=== PATIENT | male | born 2000 | race Caucasian/White ===

== ENCOUNTER 2018-03-30 12:09 | Emergency (ER) | payer OTHER ==
[2018-03-30] MEDS ORDERED: NS 1,000 ML IV ONE ×2 (12:59)
[2018-03-30] MEDS ORDERED: ONDANSETRON 4 MG/2 ML VIAL IVP ONE (13:01)
--- NOTE | 2018-03-30 13:08 | EDPHY ---
H & P Stated Complaint: N/V/D x3D, black stool, mid upper abd pn. Time Seen by Provider: 03/30/18 12:41 HPI/ROS: CHIEF COMPLAINT: Abdominal pain nausea vomiting diarrhea HISTORY OF PRESENT ILLNESS: 18-year-old male generally healthy, no history of abdominal surgeries complaining 3 days of abdominal pain, nausea vomiting, diarrhea, periumbilical pain which is now migrated to the right lower quadrant. Unable to tolerate any oral intake. Last attempted oral intake was this morning however he vomited shortly thereafter. No testicular pain. He also notes a dark possibly black coloration to his stool. No history of chronic NSAID use. No bismuth subsalicylate use. No back or flank pain. No syncope or near syncope. No testicular pain. No abdominal or testicle trauma. PRIMARY CARE PROVIDER: REVIEW OF SYSTEMS: 10 systems reviewed and negative with the exception of the elements mentioned in the history of present illness PAST MEDICAL & SURGICAL HISTORY: No history of abdominal surgery SOCIAL HISTORY: Nonsmoker. Student. PHYSICAL EXAM (Prior to examination, patient consented to physical exam, hands were washed and my usual and customary physical exam procedures followed) 1) GENERAL: Well-developed, well-nourished, alert and oriented. Appears to be in no acute distress. 2) HEAD: Normocephalic, atraumatic 3) HEENT: Pupils equal, round, reactive to light bilaterally. Sclera anicteric. Nasopharynx, oropharynx, clear, no lesions. Dry mucous membranes. 4) NECK: Full range of motion, no meningeal signs. 5) LUNGS: Clear auscultation bilaterally, no wheezes, no rhonchi, no retractions. 6) HEART: Regular rate and rhythm, no murmur, no heave, no gallop. 7) ABDOMEN: No guarding, tender to palpation periumbilical and right lower quadrant. no focal tenderness, negative McBurney's, negative Vides's, negative Rovsing's, negative peritoneal sign, 8) MUSCULOSKELETAL: Moving all extremities, no focal areas of tenderness, no obvious trauma. No peripheral edema or discoloration. 9) BACK: No CVA tenderness, no midline vertebral tenderness, no fluctuance, no step-off, no obvious trauma, no visual or palpable abnormality. 10) SKIN: No rash, no petechiae. 11) Psychiatric: Patient is oriented X 3, there is no agitation. 12) rectal: Normal rectal tone brown stool on glove. DIFFERENTIAL DIAGNOSIS: My differential diagnosis includes, but is not limited to, acute appendicitis, acute cholecystitis, bowel obstruction, acute pancreatitis, testicular torsion, gastritis and urinary tract infection. The patient understands that this diagnosis is provisional and can never be 100% accurate. This is a partial list of diagnoses considered. These considerations are based on history, physical exam, past history and reassessment. - Personal History Current Tetanus/Diphtheria Vaccine: Yes - Medical/Surgical History Hx Asthma: No Hx Chronic Respiratory Disease: No Hx Diabetes: No Hx Cardiac Disease: No Hx Renal Disease: No Hx Cirrhosis: No Hx Alcoholism: No Hx HIV/AIDS: No Hx Splenectomy or Spleen Trauma: No - Social History Smoking Status: Never smoked Constitutional: Initial Vital Signs Temperature (C) 36.4 C 03/30/18 12:21 Heart Rate 76 03/30/18 12:21 Respiratory Rate 18 03/30/18 12:21 Blood Pressure 110/77 03/30/18 12:21 O2 Sat (%) 96 03/30/18 12:21 O2 Delivery Mode Room Air Allergies/Adverse Reactions: No Known Allergies Allergy (Unverified 03/30/18 12:21) Home Medications: Medication Instructions Recorded Ondansetron Odt [Zofran Odt] 4 mg PO Q4PRN PRN #10 tab 03/30/18 Medical Decision Making - Diagnostics Imaging Results: Imaging Impressions Abdomen CT 03/30/18 13:29 Impression: 1. Normal appendix. 2. Cecal wall thickening and edema, possibly with a small amount of pericecal inflammation. Early cecitis or enteritis is suspected. Another differential is diverticulitis of the cecum, although no diverticula is seen at the cecal level. 3. Diverticula of the descending colon and sigmoid colon without associated wall thickening or inflammation. 4. Otherwise normal CT scan of the abdomen and pelvis. Findings and recommendations discussed with Manuela Albarado at 3:00 PM, 2018. ED Course/Re-evaluation: 1:08 p.m.: I have evaluated this patient. He is tender to palpation right lower quadrant McBurney's point. I recommended diagnostic studies including CT of abdomen and pelvis. He denies testicular pain or trauma. 403 p.m.: Re-evaluation, resting comfortably, tolerating oral intake, smiling, states that he took a small nap and is feeling improvement.. I Re-examined his abdomen which is soft no guarding no rebound no McBurney's point pain. Discussed his diagnostic results with him as well as imaging results. Doubt acute surgical abdominal pathology. He is tolerating oral intake. He would like to be discharged home. Plan will be discharge home with my usual and customary abdominal precautions and instructions. He feels comfortable being discharged home. Care of patient under supervision of secondary supervising physician Dr Eric Lawrence with whom I discussed case. - Data Points Laboratory Results: Laboratory Results 03/30/18 13:09 03/30/18 13:09 03/30/18 03/30/18 03/30/18 13:18 13:12 13:09 WBC RBC Hgb POC Hgb 15.6 gm/dL gm/dL (13.7-17.5) Hct POC Hct 46 % % (40-51) MCV MCH MCHC RDW Plt Count MPV Neut % (Auto) Lymph % (Auto) [place] % (Auto) Eos % (Auto) Baso % (Auto) Nucleat RBC Rel Count Absolute Neuts (auto) Absolute Lymphs (auto) Absolute Monos (auto) Absolute Eos (auto) Absolute Basos (auto) Absolute Nucleated RBC Immature Gran % Immature Gran # POC Sodium 141 mEq/L mEq/L (135-145) Sodium 138 mEq/L mEq/L (135-145) POC Potassium 4.1 mEq/L mEq/L (3.3-5.0) Potassium 4.4 mEq/L mEq/L (3.5-5.2) POC Chloride 103 mEq/L mEq/L (97-110) Chloride 106 mEq/L mEq/L (97-110) Carbon Dioxide 26 mEq/l mEq/l (22-31) POC Total CO2 25 mEq/L mEq/L (22-31) Anion Gap 6 mEq/L mEq/L (6-14) POC BUN 9 mg/dL mg/dL (7-23) BUN 12 mg/dL mg/dL (7-23) Creatinine 0.8 mg/dL mg/dL (0.7-1.3) POC Creatinine 0.8 mg/dL mg/dL (0.7-1.3) Estimated GFR > 60 Glucose 85 mg/dL mg/dL (70-100) POC Glucose 85 mg/dL mg/dL (70-100) Calcium 9.5 mg/dL mg/dL (8.5-10.4) Total Bilirubin 0.4 mg/dL mg/dL (0.1-1.4) Conjugated Bilirubin 0.3 mg/dL mg/dL (0.0-0.5) Unconjugated Bilirubin 0.1 mg/dL mg/dL (0.0-1.1) AST 127 IU/L H IU/L (17-59) ALT 69 IU/L IU/L (21-72) Alkaline Phosphatase 60 IU/L IU/L (38-126) Total Protein 6.9 g/dL g/dL (6.3-8.2) Albumin 4.2 g/dL g/dL (3.5-5.0) Lipase 65 IU/L IU/L (23-300) Stool Occult Bld Scrn NEGATIVE (NEGATIVE) 03/30/18 13:09 WBC 8.04 10^3/uL 10^3/uL (3.80-9.50) RBC 5.24 10^6/uL 10^6/uL (4.40-6.38) Hgb 16.4 g/dL g/dL (13.7-17.5) POC Hgb Hct 44.6 % % (40.0-51.0) POC Hct MCV 85.1 fL fL (81.5-99.8) MCH 31.3 pg pg (27.9-34.1) MCHC 36.8 g/dL H g/dL (32.4-36.7) RDW 12.2 % % (11.5-15.2) Plt Count 234 10^3/uL 10^3/uL (150-400) MPV 9.0 fL fL (8.7-11.7) Neut % (Auto) 68.5 % % (39.3-74.2) Lymph % (Auto) 18.9 % % (15.0-45.0) Sen[place] % (Auto) 9.7 % % (4.5-13.0) Eos % (Auto) 2.2 % % (0.6-7.6) Baso % (Auto) 0.5 % % (0.3-1.7) Nucleat RBC Rel Count 0.0 % % (0.0-0.2) Absolute Neuts (auto) 5.50 10^3/uL 10^3/uL (1.70-6.50) Absolute Lymphs (auto) 1.52 10^3/uL 10^3/uL (1.00-3.00) Absolute Monos (auto) 0.78 10^3/uL 10^3/uL (0.30-0.80) Absolute Eos (auto) 0.18 10^3/uL 10^3/uL (0.03-0.40) Absolute Basos (auto) 0.04 10^3/uL 10^3/uL (0.02-0.10) Absolute Nucleated RBC 0.00 10^3/uL 10^3/uL (0-0.01) Immature Gran % 0.2 % % (0.0-1.1) Immature Gran # 0.02 10^3/uL 10^3/uL (0.00-0.10) POC Sodium Sodium POC Potassium Potassium POC Chloride Chloride Carbon Dioxide POC Total CO2 Anion Gap POC BUN BUN Creatinine POC Creatinine Estimated GFR Glucose POC Glucose Calcium Total Bilirubin Conjugated Bilirubin Unconjugated Bilirubin AST ALT Alkaline Phosphatase Total Protein Albumin Lipase Stool Occult Bld Scrn Medications Given: Discontinued Medications Sodium Chloride (Ns) 1,000 mls @ 0 mls/hr IV EDNOW ONE; Wide Open PRN Reason: Protocol Stop: 03/30/18 13:00 Last Admin: 03/30/18 13:19 Dose: 1,000 mls Sodium Chloride (Ns) 1,000 mls @ 0 mls/hr IV EDNOW ONE; Wide Open PRN Reason: Protocol Stop: 03/30/18 13:00 Last Admin: 03/30/18 13:20 Dose: 1,000 mls Morphine Sulfate (Morphine) 4 mg IVP EDNOW ONE Stop: 03/30/18 13:02 Last Admin: 03/30/18 13:20 Dose: 4 mg Ondansetron HCl (Zofran) 4 mg IVP EDNOW ONE Stop: 03/30/18 13:02 Last Admin: 03/30/18 13:20 Dose: 4 mg Point of Care Test Results: Chemistry 03/30/18 13:18 POC Sodium 141 mEq/L mEq/L (135-145) POC Potassium 4.1 mEq/L mEq/L (3.3-5.0) POC Chloride 103 mEq/L mEq/L (97-110) POC Total CO2 25 mEq/L mEq/L (22-31) POC BUN 9 mg/dL mg/dL (7-23) POC Creatinine 0.8 mg/dL mg/dL (0.7-1.3) POC Glucose 85 mg/dL mg/dL (70-100) ISTAT H&H 03/30/18 13:18 POC Hgb 15.6 gm/dL gm/dL (13.7-17.5) POC Hct 46 % % (40-51) Departure - Departure Disposition: Home, Routine, Self-Care Clinical Impression: Hypovolemia Nausea and vomiting Qualifiers: Vomiting type: unspecified Vomiting Intractability: non-intractable Qualified Code(s): R11.2 - Nausea with vomiting, unspecified Condition: Good Instructions: Acute Nausea and Vomiting (ED) Additional Instructions: Seek immediate medical attention if you develop new or worsening symptoms, if you develop fevers, chills, inability to tolerate oral intake or any other symptoms that concerns you. Referrals: [facility],. [Clinic] - 1-2 days without fail Prescriptions: Ondansetron Odt [Zofran Odt] 4 mg PO Q4PRN PRN #10 tab PRN Reason: Nausea
[2018-03-30 13:21] LABS: PLATELET COUNT 234 10^3/uL (150-400)
[2018-03-30] MEDS ORDERED: IOHEXOL 300 mgI/ML (OMNIPAQUE) 150 ML BTL IV ONE (13:33)
[2018-03-30 16:20] VITALS: BP 103/65
== END 2018-03-30 16:19 | disposition home or self-care (01) ==
DX: R11.2 Nausea with vomiting, unspecified (principal); E86.1 Hypovolemia; R10.31 Right lower quadrant pain
CPT/HCPCS: 82435-PO; 82565-PO; 82947-PO; 84132-PO; 84295-PO; 84520-PO; 85014-ER; 96374; J2270; J2405; Q9967

== ENCOUNTER 2018-05-06 14:55 | Inpatient (IN) | payer OTHER ==
--- NOTE | 2018-05-06 15:54 | EDPHY ---
H & P Stated Complaint: cellulitis l elbow/had stitches 3 weeks ago Time Seen by Provider: 05/06/18 15:43 HPI/ROS: CHIEF COMPLAINT: Left elbow infection HISTORY OF PRESENT ILLNESS: 18-year-old male presents with left elbow infection. He slipped and fell down stairs 3 weeks ago. He sustained a left elbow laceration. The laceration was sutured at an outside facility. It was healing well until yesterday, when he developed gradually increasing pain in the left elbow area, associated with fever and drainage. The pain is moderate and increases with palpation. Tetanus is up-to-date. REVIEW OF SYSTEMS: complete 10 point ROS reviewed and is negative except for the noted elements in the HPI - Personal History Current Tetanus Diphtheria and Acellular Pertussis (TDAP): Yes - Medical/Surgical History Hx Asthma: No Hx Chronic Respiratory Disease: No Hx Diabetes: No Hx Cardiac Disease: No Hx Renal Disease: No Hx Cirrhosis: No Hx Alcoholism: No Hx HIV/AIDS: No Hx Splenectomy or Spleen Trauma: No Other PMH: denies - Social History Smoking Status: Never smoked Alcohol Use: Sober - Physical Exam Exam: General Appearance: Alert, pleasant, nontoxic-appearing Eyes: Pupils equal and round, no conjunctival pallor ENT, Mouth: Mucous membranes moist Neck: Normal inspection Respiratory: Lungs are clear to auscultation Cardiovascular: Regular rate and rhythm Gastrointestinal: Abdomen is soft and nontender Neurological: A&O, nonfocal, normal gait Skin: Warm and dry Extremities: Left elbow-healing wound on the distal aspect of the upper arm, purulent drainage present, surrounding erythema extending up to the mid upper arm and down to the mid aspect of the forearm Psychiatric: Mood and affect normal Constitutional: Initial Vital Signs Temperature (C) 37.5 C 05/06/18 15:26 Heart Rate 105 H 05/06/18 15:26 Respiratory Rate 18 05/06/18 15:26 Blood Pressure 109/83 H 05/06/18 15:26 O2 Sat (%) 94 05/06/18 15:26 O2 Delivery Mode Room Air Allergies/Adverse Reactions: No Known Allergies Allergy (Verified 05/06/18 19:32) Home Medications: Medication Instructions Recorded NK [No Known Home Meds] 05/06/18 Medical Decision Making - Diagnostics Imaging Results: Left elbow x-ray: NAD, no foreign body Imaging: I viewed and interpreted images myself Procedures: Procedure: Abscess drainage. The patient's abscess was located on the left elbow. Risks, benefits, alternatives discussed with the patient and consent obtained. The abscess was incised with a #11 blade and a small amount of purulent drainage was expressed. The wound was packed. The patient tolerated the procedure well. The procedure was performed by myself. ED Course/Re-evaluation: This patient presents with a wound infection and extensive cellulitis of the left upper extremity. Purulent drainage from the wound. A wound culture was sent. An IV was established, blood cultures drawn and Ancef 1 g IV given. Incision and drainage by me, small amount of purulent drainage from the abscess. Xray reveals no FB and no joint effusion. Able to move elbow without pain, doubt joint infection. Does not meet SIRS criteria. The hospitalist service was consulted for admission. Differential Diagnosis: includes though not limited to retained FB, joint infection, lymphangitis, septic bursitis - Data Points Laboratory Results: Laboratory Results 05/07/18 04:47 05/06/18 16:00 05/07/18 13:26 HIV (1&2) Ag & Ab Refer Pending Microbiology Results: MICROBIOLOGY 05/06/18 15:50 Arm - Swab Gram Stain - Final 05/06/18 15:50 Arm - Swab Wound Culture - Preliminary Streptococcus Pyogenes Grp A Strep Agalactiae Group B Medications Given: Acetaminophen (Tylenol) 650 mg PO Q4 PRN PRN Reason: Pain, Mild/Fever, Can Take PO Stop: 11/02/18 17:49 Last Admin: 05/07/18 13:02 Dose: 650 mg Sodium Chloride (Ns) 1,000 mls @ 100 mls/hr IV CONT MIKEL Stop: 11/02/18 17:59 Last Admin: 05/07/18 03:30 Dose: 1,000 mls Cefazolin Sodium/Dextrose (Ancef) 100 mls @ 200 mls/hr IV Q8HRS MIKEL PRN Reason: Protocol Stop: 06/06/18 13:59 Last Admin: 05/07/18 14:11 Dose: 100 mls Oxycodone HCl (Oxycodone Ir) 5 - 10 mg PO Q3HRS PRN PRN Reason: Pain, Severe Able to Take PO Stop: 05/16/18 17:49 Last Admin: 05/07/18 20:00 Dose: 10 mg Tramadol HCl (Ultram) 50 mg PO Q6HRS PRN PRN Reason: Pain, Moderate Able to Take PO Stop: 11/02/18 17:49 Last Admin: 05/07/18 08:26 Dose: 50 mg Discontinued Medications Cefazolin Sodium/Dextrose (Ancef 1 Gm (Premix)) 50 mls @ 200 mls/hr IV EDNOW ONE PRN Reason: Protocol Stop: 05/06/18 16:05 Last Admin: 05/06/18 16:35 Dose: 50 mls Cefazolin Sodium/Dextrose (Ancef 1 Gm (Premix)) 50 mls @ 200 mls/hr IV Q8HRS MIKEL PRN Reason: Protocol Stop: 06/05/18 21:59 Last Admin: 05/07/18 06:10 Dose: 50 mls Sodium Chloride (Ns) 500 mls @ 0 mls/hr IV ONCE ONE PRN Reason: Wide Open Stop: 05/06/18 23:20 Last Admin: 05/06/18 23:38 Dose: 500 mls Ibuprofen (Motrin) 400 mg PO ONCE ONE Stop: 05/06/18 23:20 Last Admin: 05/06/18 23:39 Dose: 400 mg Morphine Sulfate (Morphine) 4 mg IVP EDNOW ONE Stop: 05/06/18 16:30 Last Admin: 05/06/18 16:33 Dose: 4 mg Ondansetron HCl (Zofran) 4 mg IVP EDNOW ONE Stop: 05/06/18 16:30 Last Admin: 05/06/18 16:33 Dose: 4 mg Departure - Departure Disposition: [facility] Clinical Impression: Cellulitis and abscess of upper extremity Condition: Fair
[2018-05-06 16:13] LABS: PLATELET COUNT 215 10^3/uL (150-400)
[2018-05-06] MEDS ORDERED: ONDANSETRON 4 MG/2 ML VIAL IVP ONE (16:29)
--- NOTE | 2018-05-06 17:38 | ASMTCMCOM ---
CM Note CM Note Notes: Reviewed chart. Pt presented to the Emergency Department with elbow swelling and redness s/p a fall w/ elbow laceration approximately 1 wk prior to arrival. Pt does not have any significant medical history. Pt to be admitted for further evaluation and treatment. Discharge needs remain unclear at this time. Anticipate pt will likely discharge home independent when medically stable. CM will continue to follow for any potential needs. Discharge Plan: To be determined Date Signed: 05/06/2018 05:37 PM Electronically Signed By:Merline Martin RN
[2018-05-06] MEDS ORDERED: HYDROmorphONE/DILAUDID 1 MG/ML INJ IVP PRN (17:50)
[2018-05-06] MEDS ORDERED: ONDANSETRON 4 MG/2 ML VIAL IVP PRN (17:50)
[2018-05-06] MEDS ORDERED: PROMETHAZINE HCL 25 MG/ML INJ IVP PRN (17:50)
--- NOTE | 2018-05-06 18:46 | GHP ---
[f rep st] HISTORY AND PHYSICAL DATE OF ADMISSION: 05/06/2018 CHIEF COMPLAINT: Left elbow infection. HISTORY: Mlyes is a 18-year-old student who fell down the stairs 3 weeks ago and got a left elbow laceration. This was sutured. It was healing well until yesterday. It felt a little stiff yesterd ay with decreased range of motion, but when he woke up this morning the pain in the elbow was very se raji and he had new onset fever and the wound was obviously draining pus. In the emergency room, he had an abscess incision and drainage and is now packed. There was some purulence expressed. PAST MEDICAL HISTORY: Negative. MEDICATIONS: None. ALLERGIES: No known drug allergies. SOCIAL HISTORY: No smoking. Occasional alcohol. He is a student at majoring in business. He li ves in an apartment with roommates. He is originally from [place]. REVIEW OF SYSTEMS: Complete review of systems obtained. Review of systems negative regarding consti tutional, HEENT, GI, pulmonary, vascular, , hematologic, endocrine, psych except for positives as i n HPI. FAMILY HISTORY: Reviewed, noncontributory to presenting complaint. PHYSICAL EXAMINATION: GENERAL: Well-developed, well-nourished male, in no distress. VITAL SIGNS: Temperature 38.1, pulse 105, blood pressure 127/68, saturating 94% on room air. EYES: Normal conjun ctivae. Pupils equal, round, reactive to light. ENT: Normal ears, nose. Hearing intact. Normal t eeth. Oropharynx moist. NECK: Trachea midline. No thyromegaly. CHEST: Normal respiratory effort . LUNGS: Clear to auscultation bilaterally. CARDIOVASCULAR: Regular rate and rhythm. No murmur. No lower extremity edema. ABDOMEN: Soft, nontender. No hepatosplenomegaly. SKIN: Left elbow has erythema extending jail down the arm, but over the elbow joint there is an area of fluctuance stevie t has been packed and drained partially in the emergency room, although I think there may be some celestina oing fluctuance over the elbow potentially in the bursa. He has decreased range of motion of the elb ow due to stiffness, but I do not think the joint is involved due to the distribution of the erythema . MUSCULOSKELETAL: No cyanosis or clubbing. Strength 5/5 upper and lower extremities. NEUROLOGIC: Cranial nerves intact. Normal sensation to light touch. PSYCH: Alert and oriented x3. Normal af fect. Normal judgment. Normal memory. LABORATORY DATA: White count 18.5, hematocrit 44.3, platelets 215. Sodium 134, potassium 4.1, chlor rosalva 103, bicarb 22, BUN 13, creatinine 0.9, glucose 89, lactate 0.8. Left elbow x-ray is negative for osteomyelitis, positive for cellulitis. This case was personally di scussed with Dr. Katja Espinosa regarding emergency room course and her incision and drainage. ASSESSMENT/PLAN: 1. Left elbow cellulitis with abscess status post incision and drainage. Will continue IV Ancef. W e will watch this area of fluctuation. He may need surgical consultation for further incision and dr tabor depending on clinical course. I doubt he has a septic joint, although I do suspect there may be a septic bursitis. 2. Sepsis. This is evidenced by fever, tachycardia and leukocytosis. Blood cultures have been sent . His lactate is okay at 0.8. CODE STATUS: Full. ADMISSION STATUS: Will admit to observation. Reevaluate tomorrow regarding ongoing need for hospita lization. DVT PROPHYLAXIS: He is low risk. /[id number]/MODL
[2018-05-06] MEDS: oxyCODONE IR 5 MG TAB PO PRN (18:50)
[2018-05-06] MEDS: ACETAMINOPHEN 325 MG TAB PO PRN (21:22)
[2018-05-06] MEDS ORDERED: NS 500 ML IV ONE (23:19)
[2018-05-06] MEDS ORDERED: IBUPROFEN 200 MG TAB PO ONE (23:19)
[2018-05-07] MEDS: NS 1,000 ML IV SCH (03:30)
[2018-05-07 05:06] LABS: PLATELET COUNT 186 10^3/uL (150-400)
[2018-05-07] MEDS: traMADol 50 MG TAB PO PRN (08:26)
[2018-05-07] MEDS: oxyCODONE IR 5 MG TAB PO PRN ×2 (10:44→20:00)
--- NOTE | 2018-05-07 11:21 | WOCRNPDOC ---
WOCRN Advanced Assessment Note - Skin Integrity Problem, Advanced Assess Left Elbow Dressing Type: Plain Packing, Other Other Dressing Type: Bandaide Dressing Description: Intact, Saturated Exudate Amount: Moderate Exudate Color: Yellow, Red Exudate Characteristic(s): Serosanguinous Integumentary Issue Intervention: Dressing Changed, Dressing Initialed & Dated Jayde Wound Tissue: Blanching, Erythema, Hot, Swollen, Erythema Marked by Wound RN (date and timed) Jayde Wound Swelling: Moderate Wound Bed Constitution: Undermining (1 cm 5-9 oclock) Wound Edges: Attached Site Odor: None Site Measurement - Head-to-Toe Length X Width X Depth (cm): 0.8x1.1x1.2 Skin Integrity Problem Comment: Patient with I&D site to the dorsal elbow proximal to the olecranon process. Bandaide and packing removed with discomfort to patient. Oxy x2 given for pain management by Edith RICHARDSON. Desi GARCIA in room to visualize wound. Wound is a discrete pocket without tunneling. No purulence noted. Packed with 1/4 inch plain packing, covered with quarter piece of abd, wrapped with kerlix and covered with stretch net. Rosie HILL in room for care.
--- NOTE | 2018-05-07 11:58 | PDCONSULT ---
Dormitory Counselor Note: Infectious Diseases Consult Note Impression: 18-year-old male with acute left elbow cellulitis without objective evidence for septic arthritis. 1. Left elbow cellulitis with abscess 2. Status post left elbow bedside I&D on 05/06/18 3. Left elbow trauma (approx. 04/16/18) Plan: 1. Increase cefazolin to 2gm q8 hours 2. HIV test with next labs 3. Can apply dressing without packing in wound Shawn Weeks MD Infectious Diseases Chief Complaint: Pain and swelling in left elbow Requesting Provider: Dr. Velazquez Reason for Referral: Consultation was requested by Dr. Velazquez regarding antimicrobial management. HPI: 18-year-old man who presented to the hospital increased left elbow pain, swelling, and erythema starting on 05/05/18. Had a left elbow laceration approximately 3 weeks prior to admission with sutures placed at outside facility. Presented to ED one day after increased pain and swelling in the elbow. Underwent I&D by ED physician with a small amount of purulence liberated. No other preceding trauma or abrasions of the left elbow prior to admission. He has not had similar infections in the past. He is sexually active with multiple female partners. No dysuria, hematuria, or urethral discharge. Has never had and STI diagnosed in the past. Chronology of Present Illness: Location of symptoms: Left upper extremity centering on left elbow Onset of symptoms: Started 05/05/18 Initial signs/symptoms: Increased pain and decreased range of motion with mild erythema and swelling Associated signs/symptoms at onset: No fever or chills initially but he did have shaking chills starting on 05/06/18 Changes since onset: Ongoing periodic fever with chills; left elbow pain and edema persist Exacerbating factors: movement Relieving factors: Rest Antibiotics since symptom onset: cefazolin started on 05/06/18 Change in symptoms with antibiotics: No change to date Relevant PMHx/PSHx: Had a fall approximately 3 weeks prior to admission with a left elbow laceration requiring sutures (detailed records not available) Reviewed [facility] medical [facility] in [facility], and [facility] ([facility] Past Medical History: Left elbow cellulitis with purulence (05/06/18) Past Surgical History: Left elbow bedside I&D by ED physician (05/06/18) Social History: Does not use tobacco products; Does not consume marijuana products; Drinks alcohol socially; Does not use any other drugs currently or in the past; Lives with two roommates who are not home very frequently; Sexually active with multiple female partners over the past few months; Uses condoms reliably with new partners but does have one steady partner with no condom use; Has been tested for STI in the past and has been negative; Tested negative for HIV over a year prior to this hospitalization Family History: No family members with recurrent infections Allergies: NKDA Medications: Reviewed in medical record and confirmed with patient. ROS: 10 organ systems reviewed; pertinent positives and negatives listed in the HPI, all other organ systems negative. Physical Exam: VS: Reviewed Gen: No acute distress; Breathing comfortably without supplemental oxygen; Able to speak in complete sentences Eyes: No conjunctival injection; No scleral icterus HENT: No gross deformities Neck: No limitation in range of motion Pulm: Audible inspiratory sounds to the bases bilaterally; No wheeze, rhonchi, or rales CV: Normal S1 and S2; Regular rate and rhythm; No murmurs, rubs, or gallops; No lower extremity edema Abd: Not distended; Normo-active bowel sounds; Soft; Non-tender Skin: A full skin exam including exposed bilateral upper extremities, bilateral lower extremities to the knees, face, neck, abdomen, chest, and back performed; Skin intact, warm, with no rash; Changes limited to the left upper extremity MSK: Left elbow exposed with wound care at bedside, approximately 1cm horizontal laceration with no purulent drainage (serous with packing removed per wound care nursing), erythema extending from the mid-left upper arm to the mid-forearm posterolaterally; Decreased range of motion due to pain at the left elbow Ext: No clubbing or cyanosis Neuro: Awake and alert Psych: Normal mood and blunted affect Labs/Imaging: All microbiology testing (culture and non-culture) reviewed in the medical record. Personally reviewed and interpreted the images of the following radiographs: Left elbow x-ray with soft tissue swelling; no bony erosion to suggest osteomyelitis Medications Generic Name Dose Route Start Last Admin Trade Name Freq PRN Reason Stop Dose Admin Cefazolin Sodium/Dextrose 100 mls @ 200 mls/hr 05/07/18 14:00 Ancef IV 06/06/18 13:59 Q8HRS MIKEL Protocol Discontinued Medications Generic Name Dose Route Start Last Admin Trade Name Freq PRN Reason Stop Dose Admin Cefazolin Sodium/Dextrose 50 mls @ 200 mls/hr 05/06/18 15:51 05/06/18 16:35 Ancef 1 Gm (Premix) IV 05/06/18 16:05 50 mls EDNOW ONE Protocol Cefazolin Sodium/Dextrose 50 mls @ 200 mls/hr 05/06/18 22:00 05/07/18 06:10 Ancef 1 Gm (Premix) IV 06/05/18 21:59 50 mls Q8HRS [facility] Protocol Microbiology 05/06/18 15:50 Arm - Swab Gram Stain - Final Laboratory Tests 05/06/18 05/06/18 05/07/18 16:00 16:00 04:47 WBC 18.52 H 14.91 H Plt Count 215 186 Creatinine 0.9 Ongoing monitoring for antimicrobial toxicity with: CBC, BMP.
[2018-05-07] MEDS: ACETAMINOPHEN 325 MG TAB PO PRN (13:02)
[2018-05-07] MEDS: ceFAZolin 2 GM/DEXTROSE 100 ML IV SCH ×2 (14:11→21:56)
--- NOTE | 2018-05-07 14:29 | HOSPPROG ---
Hospitalist Progress Note Assessment/Plan: 18-year-old male with acute left elbow cellulitis. First encounter, chart reviewed. D/W Dr Weeks. #Left elbow cellulitis with abscess -cont abx, ancef - status post left elbow bedside I&D on 05/06/18 - Left elbow trauma (approx. 04/16/18) #Pain -supportive care #Sepsis -resolving #Dispo -cont to watch elbow -may need surgical consult if not improving Objective: Vital Signs Temp Pulse Resp BP Pulse Ox 37.3 C 95 16 104/59 L 89 L 05/07/18 13:01 05/07/18 12:00 05/07/18 12:00 05/07/18 12:00 05/07/18 12:00 Laboratory Results 05/07/18 04:47 05/06/18 05/07/18 05/08/18 05:59 05:59 05:59 Intake Total 250 287 Balance 250 287 - Physical Exam Constitutional: no apparent distress, appears nourished, uncomfortable Eyes: PERRL, anicteric sclera, EOMI Ears, Nose, Mouth, Throat: moist mucous membranes, hearing normal, ears appear normal Cardiovascular: No JVD, No tachycardia, No edema Respiratory: no respiratory distress, no rales or rhonchi, reduced air movement Gastrointestinal: normoactive bowel sounds, No tenderness, No ascites Skin: warm, erythema, induration Musculoskeletal: joint tenderness, pain with ROM, generalized weakness Neurologic: AAOx3 Psychiatric: interacting appropriately, not anxious, not encephalopathic ICD10 Worksheet Patient Problems: Problems Problem Status Onset Cellulitis Acute - ICD10 Problem Qualifiers (1) Cellulitis Qualifiers: Site of cellulitis of extremity: upper extremity Laterality: left
--- NOTE | 2018-05-07 15:13 | PDMN ---
Medical Necessity Medical necessity: Change to inpt as of 05/07/18 @ 14:31, meets inpt criteria per MD order and MCG M-70, Cellulitis. 18 y/o admitted w/acute L elbow cellulitis w/abcess and sepsis, required I&D yesterday. ID consult today, upgraded to inpt for further IV ABX and monitoring, may need surgical consult if not improving. Est LOS>2MN for ongoing eval/management of above.
[2018-05-08] MEDS: ceFAZolin 2 GM/DEXTROSE 100 ML IV SCH ×3 (05:42→22:16)
[2018-05-08] MEDS: oxyCODONE IR 5 MG TAB PO PRN ×2 (09:47→15:02)
--- NOTE | 2018-05-08 10:45 | PCMIDPN ---
Assessment/Plan: 1.Severe left elbow cellulitis 2/2 GA/GB Strep with probable underlying septic olecranon bursitis: Cellulitis and pain much worse today, with increasing pain and fluctuance overlying the bursa. Small open wound superiorly not actively draining. Doubt joint involvement or necrotizing fasciitis. Will have ortho get involved as pt will likely need bursa opened and drained for source control. Given extent of infection and involved pathogens, will add Clindamycin to reduce toxin production (have asked micro lab to perform sensi's on GAS). Cont Ancef as is.( prefer this over PCN as some GB strep isolates with increasing GUSTAVO's to PCN) Also needs to KEEP ARM ELEVATED! (has not been doing). Given low suspicion for necrotizing fasciitis, hold off on MRI; surgical eval/washout most important at this juncture. 2. Misc: HIV pending. Low risk. Tdap UTD. Over 25 mins spent with pt today. 05/08/18 10:46 Subjective: Feels much worse today--arm much more painful and swollen; redness extending beyond demarcated margins. Pt in quite a bit of pain. denies loss of sensation. Told me whole story of falling down stairs Apr 16--went to [facility]--wound washed out, oversewn. No abx. Was okay, then developed severe pain in elbow Monday night (thought he banged it but did not) and then redness quickly developed over weekend with purulent drainage Monday morning. Of note, pt reports Tdap within 5 yrs. Objective: Ancef 2 q 8 day 2 tmax 38.1 Vital Signs Temp Pulse Resp BP Pulse Ox 37.4 C 84 18 103/59 L 91 L 05/08/18 07:34 05/08/18 07:34 05/08/18 07:34 05/08/18 07:34 05/08/18 07:34 05/07/18 05/08/18 05/09/18 05:59 05:59 05:59 Intake Total 2350 Output Total 900 Balance 1450 wound with GAS and GBS blood x 2 neg - Physical Exam General Appearance: other (diaphoretic) EENT: pharynx normal, No scleral icterus, No thrush Respiratory: lungs clear Cardiac/Chest: tachycardia Extremities: other (left arm: sig blanching erythema at elbow that extends proximally and distally. No muscle belly TTP, no hypesthesia or vesicles/ blisters. Small incision above elbow not draining. Elbow bursa swollen tender and fluctuant. Significant point tenderness at bursa. difficult to extend his arm due to swelling and pain. no epitrochlear nodes or axillary nodes) Abdomen: non-tender Skin: other (faint blanching erythematous macular rash mostly on back, but pt profusely sweating) ICD10 Worksheet Patient Problems: Problems Problem Status Onset Cellulitis Acute Cellulitis and abscess of upper extremity Acute
[2018-05-08] MEDS: NS 1,000 ML IV SCH (11:16)
[2018-05-08] MEDS: CLINDAMYCIN 600 MG/DEXTROSE 50 ML IV SCH ×4 (11:16→19:50)
[2018-05-08] MEDS ORDERED: ceFAZolin 2 GM/DEXTROSE 100 ML IV ONE (11:33)
--- NOTE | 2018-05-08 12:34 | HOSPPROG ---
Hospitalist Progress Note Assessment/Plan: 18-year-old male with acute left elbow cellulitis. First encounter, chart reviewed. D/W Dr Giraldo. #Left elbow cellulitis with abscess - 2/2 GA/GB Strep with probable underlying septic olecranon bursitis -consulted ortho, Barb, -to OR today -Cellulitis and pain much worse today, -Small open wound superiorly not actively draining. -Cont Ancef and add clinda #Pain -supportive care #Sepsis -resolving #Dispo -unclear -needs surgical intervention Subjective: Not feeling well. Still tired and pain in elbow. Objective: Vital Signs Temp Pulse Resp BP Pulse Ox 36.4 C 91 18 112/59 L 90 L 05/08/18 11:30 05/08/18 11:30 05/08/18 11:30 05/08/18 11:30 05/08/18 11:30 05/07/18 05/08/18 05/09/18 05:59 05:59 05:59 Intake Total 2350 Output Total 900 Balance 1450 - Physical Exam Constitutional: appears nourished, uncomfortable, No obese Eyes: PERRL, anicteric sclera, EOMI Ears, Nose, Mouth, Throat: moist mucous membranes, hearing normal, ears appear normal Cardiovascular: regular rate and rhythym, No JVD, No edema Respiratory: no respiratory distress, no rales or rhonchi, reduced air movement Gastrointestinal: normoactive bowel sounds, No tenderness, No ascites Skin: warm, erythema, fluctuance, No mottled Musculoskeletal: joint tenderness, pain with ROM, generalized weakness Neurologic: AAOx3 Psychiatric: interacting appropriately, not anxious, not encephalopathic, thought process linear ICD10 Worksheet Patient Problems: Problems Problem Status Onset Cellulitis Acute Cellulitis and abscess of upper extremity Acute - ICD10 Problem Qualifiers (1) Cellulitis Qualifiers: Site of cellulitis of extremity: upper extremity Laterality: left
--- NOTE | 2018-05-08 13:12 | GCON ---
[f rep st] CONSULTATION DATE OF CONSULTATION: 05/08/2018 HISTORY OF PRESENT ILLNESS: Patient is a pleasant 18-year-old right-hand dominant male who presented to [facility] ED for concerns of a left elbow laceration with associated fever and chills which began on 2018. The patient has a prior history of a left elbow laceration which was sutured at [facility] following a fall 3 weeks ago. His sutures were removed last week and he was doing fine until he presented with those constitutional symptoms. He did notice a decreased range of motion as well as pus and therefore presented to the ED on 05/06/2018. He was admitted for abscess, his wound was opened and packing was placed in the ER. He has been on antibiotics since that time, managed by Medicine primary team, with an ID consult. He denies any abnormal numbness or tingling. PAST MEDICAL HISTORY: None. CURRENT MEDICATIONS: IV cefazolin since admission. ALLERGIES TO MEDICATIONS: NKDA. 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 No history of smoking. Occasional alcohol use. No drug use. PAST SURGICAL HISTORY: Multiple dental procedures in past 5 years. No problems with bleeding or anesthesia. REVIEW OF SYSTEMS: Otherwise, a 10-point review of systems is negative except for as stated above. FAMILY HISTORY: He denies any history of blood clots, bleeding disorders, cancers or diabetes. PHYSICAL EXAM: VITAL SIGNS: He is hypotensive at 112/59. His heart rate most recently was 91, respirations 18, afebrile at this time, 36.4 degrees Celsius. GENERAL: Patient is alert, oriented, able to respond appropriately to questions , in no acute distress. HEENT: Normocephalic, atraumatic. EOMs intact. Moist buccal mucosa. Patent nares. Hearing intact. NECK: No lymphadenopathy. Full AROM and TTP. Negative Lhermitte. Negative Spurling B/L. CV: Nonlabored breathing. No diaphoresis present. ABDOMEN: Soft, nontender, nondistended. MUSCULOSKELETAL: Focalized exam of bilateral upper extremities. There is a 1- 1.5 mm wound over his left olecranon tip with mild purulence noted. Erythema is extending approximately 15 cm laterally down his ulna. However, this appears improved from the original outline which was performed on him. No erythema, edema, ecchymosis, or calor otherwise noted. All compartments soft with no crepitus felt. There is a palpable FC at olecranon bursa with severe TTP. Skin otherwise intact. ROM 5-125. Full range of motion in supination and pronation with pain limiting full range of motion. FROM distally at wrist/ hand with 5/5 roll up machine operator strength present. DNVI B/L with no focal deficits noted. Calves soft, supple, and NTTP B/L with negative bilateral Homans. WISAM hose and SCDs are not yet present on the patient. Negative passive stretch BUE. SKIN: As listed above in MSK. NEURO: The patient is alert, oriented, able to respond appropriately to question and command. Cranial nerves grossly intact. Secondary survey is negative except for stated above. PSYCH: A+Ox3, appropriate mood and affect. LAB STUDIES: The patient has an increased white blood cell count of 14.9 as well as increased neutrophils at 10.52, increased monocytes at 1.35. The initial wound culture from 05/06/2018 shows Strep pyo A as well as Streptococcus agalactiae group B. IMAGING: Radiographs of the left elbow show no fractures, malalignments, or deformities. ASSESSMENT: Left elbow abscess most c/w septic olecranon bursitis. There is no current sign of septic arthritis. PLAN: At this time patient's physical exam findings, radiographs, and labs were explained at length. Dr Day has recommended I and D of the left elbow. After discussing R/B/A to surgery, Dr Day has obtained a signed and witnessed informed consent, placed in his chart. Keep Myles n.p.o. We will obtain CRP and ESR as well as recommendation for WISAM hose, SCDs to be placed preoperatively. He will continue his scheduled IV antibiotics w/o any additional prophylactic abx. NWB to the left upper extremity at this time. Maintain dry dressing. Plan is for surgery this afternoon, immediately upon appropriate NPO status. Advised patient to watch for any worsening pain, abnormal numbness or tingling, worsening change in heat or color of the extremity, worsening change in range of motion or strength and to seek immediate medical attention if seen. He understands and agrees with this course of action. The patient was seen and examined in conjunction with Dr. Day. /[id number]/MODL MTDD
[2018-05-08] MEDS ORDERED: LR 1,000 ML IV ONE (15:22)
[2018-05-08] MEDS ORDERED: MIDAZOLAM 2 MG/2 ML VIAL IVP ONE (16:38)
--- NOTE | 2018-05-08 16:40 | PDANEPAE ---
ANE History of Present Illness elbow i&d ANE Past Medical History - Cardiovascular History Hx Hypertension: No Hx Arrhythmias: No Hx Chest Pain: No Hx Coronary Artery / Peripheral Vascular Disease: No Hx CHF / Valvular Disease: No Hx Palpitations: No - Pulmonary History Hx COPD: No Hx Asthma/Reactive Airway Disease: No Hx Recent Upper Respiratory Infection: No Hx Oxygen in Use at Home: No Hx Sleep Apnea: No Sleep Apnea Screening Result - Last Documented: Negative - Neurologic History Hx Cerebrovascular Accident: No Hx Seizures: No Hx Dementia: No - Endocrine History Hx Diabetes: No Hypothyroid: No Hyperthyroid: No Obesity: no - Renal History Hx Renal Disorders: No - Liver History Hx Hepatic Disorders: No ANE Review of Systems Review of Systems: - Exercise capacity Exercise capacity: >=4 METS ANE Patient History - Allergies Allergies/Adverse Reactions: No Known Allergies Allergy (Verified 05/06/18 19:32) - Home Medications Home Medications: NK [No Known Home Meds] 05/06/18 [Last Taken Unknown] - NPO status NPO Status: no food or drink >8 hours NPO Since - Liquids (Date): 05/08/18 NPO Since - Liquids (Time): 08:00 NPO Since - Solids (Date): 05/08/18 NPO Since - Solids (Time): 08:00 - Anes Hx Anes Hx: no prior problems - Smoking Hx Smoking Status: Never smoked - Alcohol Use Alcohol Use: Sober ANE Labs/Vital Signs - Labs Result Diagrams: 05/08/18 12:20 05/06/18 16:00 - Vital Signs Blood Pressure: 180/61 Heart Rate: 66 Respiratory Rate: 16 O2 Sat (%): 95 Height: 187.96 cm Weight: 90.718 kg ANE Physical Exam - Airway Mallampati Score: Class 2 Mouth exam: normal dental/mouth exam - Pulmonary Pulmonary: no respiratory distress - Cardiovascular Cardiovascular: regular rate and rhythym - ASA Status ASA Status: I ANE Anesthesia Plan Anesthesia Plan: GA w LMA
[2018-05-08] MEDS ORDERED: BUPIVACAINE/EPI 0.5% 30 ML SDV ONE (16:45)
[2018-05-08] MEDS ORDERED: BACITRACIN 50,000 UNITS/10 ML SYR IRR ONE ×2 (16:46→16:48)
[2018-05-08] MEDS ORDERED: POLYMYXIN B SULFATE 500,000 UNIT/10 ML SYR IRR ONE (16:46)
[2018-05-08] MEDS ORDERED: PROPOFOL 200 MG/20 ML VIAL ONE (16:47)
[2018-05-08] MEDS ORDERED: fentaNYL 100 MCG/2 ML INJ ONE (16:47)
[2018-05-08] MEDS ORDERED: ONDANSETRON 4 MG/2 ML VIAL ONE (16:47)
[2018-05-08] MEDS ORDERED: DEXAMETHASONE 4 MG/ML VIAL ONE (16:47)
[2018-05-08] MEDS ORDERED: LIDOCAINE 2% 5 ML SDV ONE (16:47)
[2018-05-08] MEDS ORDERED: KETOROLAC 30 MG/1 ML SDV ONE (16:47)
[2018-05-08] MEDS ORDERED: BUPIVACAINE 0.25% 30 ML SDV ONE (17:24)
[2018-05-08] MEDS ORDERED: LR 500 ML IV PRN (17:51)
[2018-05-08] MEDS ORDERED: NALOXONE HCL 0.4 MG/ML INJ IVP PRN (17:51)
[2018-05-08] MEDS ORDERED: ONDANSETRON 4 MG/2 ML VIAL IVP PRN (17:51)
[2018-05-08] MEDS ORDERED: ALBUTEROL 3 ML DEYVIAL IH PRN (17:51)
[2018-05-08] MEDS ORDERED: CLINDAMYCIN 600 MG/DEXTROSE 50 ML IV SCH (18:00)
--- NOTE | 2018-05-08 18:27 | POSTANESTH ---
Post Anesthetic Evaluation Cardiovascular Status: Normal, Stable Respiratory Status: Normal, Stable Level of Consciousness/Mental Status: Can Participate in Eval Pain Control: Adequate, Prn Tx Ordered Nausea/Vomiting Control: Adequate, Prn Tx Ordered Complications Possibly Related to Anesthesia: None Noted
--- NOTE | 2018-05-08 18:28 | POSTOPPROG ---
Post Op Note Date of Operation: 05/08/18 Surgeon: Bal Day Manager Alliance: Tawny Solis, SHARON Anesthesia: GET(General Endotracheal) Pre-op Diagnosis: Left elbow septic bursitis Post-op Diagnosis: Left elbow septic bursitis Indication: Left elbow septic bursitis Procedure: Left elbow I/D Inf/Abcess present in the surg proc area at time of surgery?: Yes Depth: Deep Incisional (Fascial) EBL: Minimal Drains: Pancho Garcia Specimen(s): Tissue culture as well as bursal purulence sent.
[2018-05-08] MEDS: HYDROmorphONE/DILAUDID 2 MG/ML INJ IVP PRN ×2 (18:45→19:02)
[2018-05-09] MEDS: ACETAMINOPHEN 325 MG TAB PO PRN ×2 (01:16→17:20)
[2018-05-09] MEDS: CLINDAMYCIN 600 MG/DEXTROSE 50 ML IV SCH ×2 (03:51→20:27)
--- NOTE | 2018-05-09 05:19 | GOP ---
[f rep st] OPERATIVE REPORT DATE OF OPERATION: 05/08/2018 SURGEON: Bal Day MD RECORDING STUDIO INTERNSHIP: Tawny Solis PA-C ANESTHESIA: General. ANESTHESIOLOGIST: Chirag Arce MD PREOPERATIVE DIAGNOSIS: 1. Left elbow septic olecranon bursitis. 2. Left elbow infected sub-acute laceration/open wound. POSTOPERATIVE DIAGNOSIS: 1. Left elbow septic olecranon bursitis. 2. Left elbow infected sub-acute laceration/open wound. PROCEDURE PERFORMED: Incision, irrigation, drainage and debridement of left elbow with olecranon bursectomy and wound margin excision. FINDINGS: Septic olecranon bursitis with gross pus. This area of purulence was encapsulated within the olecranon bursa. There was no extension down into the forearm soft tissues around the elbow. The previously existing horizontal traumatic laceration had necrotic-appearing wound edges and purulence. The prior laceration measured approximately 15 mm from medial to lateral. The location was just superior and medial to the olecranon tip. No obvious involvement of underlying bone. There was obvious severe bursitis throughout this area. SPECIMENS: Both a swab and fluid samples were taken and sent for culture and sensitivity including aerobic, anaerobic, and fungal. ESTIMATED BLOOD LOSS: 40 cc. INDICATIONS: This is a 18-year-old male who suffered a fall injuring his left elbow with a laceration approximately 3 weeks ago. He was evaluated in Urgent Care and sutures were placed. He then had the sutures removed about 2 weeks after the injury. Most recently over the last 3-4 days, he developed worsening fever, chills, redness around the elbow as well as general feeling of diffuse sickness. He was admitted to the internal medicine service from the [facility] on 05/06/2018. The patient was attempted to be managed medically, and eventually today I was consulted as the on-call orthopedic surgeon to evaluate and manage this deep space infection. He has been on IV antibiotics prior to the surgery. He denies any numbness, chills, or other complaints. Please see history and physical for additional information. After understanding the risks, benefits, and alternatives to the surgery, he provided a signed and witnessed informed consent which was placed in his chart. DESCRIPTION OF PROCEDURE: The patient was identified in the preop holding area , and his left elbow was signed and designated as the operative site. Patient was confirmed in bilateral lower extremity WISAM hose and SCDs. Preop signed and witnessed informed consent was obtained in the preop holding area. Patient was taken back to the operating room, placed supine on the OR table, and general anesthesia was obtained. Once his airway stabilized, he was positioned in the lateral decubitus position with a well-padded stovall bag. Axillary roll was placed. Right upper extremity was forward flexed on a well-padded arm board. Left upper extremity was placed across an upper extremity positioning buttress with abundant padding. A nonsterile tourniquet was placed over cast padding, and this was then placed at the level of the elbow buttress in order to appropriately prepared and pad the left upper extremity. Left upper extremity was then prepped and draped in the usual sterile manner. Please note that both lower extremities were padded around the proximal fibula bilaterally, as well as the heel and ankle with foam egg crate padding. Pillows were placed beneath both lower extremities. Due to the location of the infected laceration, a curvilinear incision started from the lateral edge of the open infected wound, and then a curvilinear incision was made around the posterior and lateral aspect of the olecranon extending down approximately 3 cm distal to the olecranon tip. Full-thickness dermal incision was made with a #10 blade and careful dissection was taken down through subcutaneous fat. Small crossing veins were coagulated with a Bovie cautery device. With gentle spreading using a hemostat, obvious gross pus was encountered once I entered the bursal cavity. A swab was used to take a swab culture. Then additional aspiration of the gross pus was placed into a sterile cup for additional secondary culture. Once this was completed, the remainder of the bursal incision was completed with a Bovie cautery device. Retractors were placed. All remaining pus was irrigated and suctioned. A curette was used to debride the area along all surfaces. My finger was used to palpate throughout the extent of the cavity to ensure that there was no extension in any of the other soft tissues proximally or distally or along the medial or lateral borders. The overall cavity measured approximately 4 cm superior to inferior and 3 cm medial to lateral. A rongeur and curette were used to further debride and remove all of the infected bursa, i.e. complete olecranon bursectomy. Any necrotic tissues throughout the bursal cavity were debrided with a rongeur. At the level of the prior open and infected wound, the wound margins were excised from the level of the skin down through the level of the bursa at a width of approximately 3 mm. Any necrotic tissues along this infection tract were debrided with a curette and rongeur. Once all debridement was completed, a total of 3 L of sterile saline with bacitracin was used to copiously irrigate the wound. A Davol 1/8 inch drain was placed through a separate stab incision using a trocar out the lateral aspect of the olecranon bursa area. This drain was sutured in place. The wound was then closed in layers. 3-0 PDS was used to reapproximate the deep dermal layer. Multiple interrupted 3 -0 nylon horizontal mattress sutures were used to close the wound in its entirety over the drain. The wound edges were anesthetized with 0.25% Marcaine without epinephrine. The left elbow was then carefully cleansed with wet and dry sponges and then sterile postoperative surgical dressings were applied. Cast padding was applied. A long-arm posterior splint was applied. The anesthesia service took over to wake the patient up. TOURNIQUET TIME: None. DRAINS: Single MARTÍNEZ drain, 1/8 inch. IMPLANTS: None. COMPLICATIONS: None. DISPOSITION: The patient was extubated and transferred to the PACU in stable condition. /[id number]/MODL MTDD
[2018-05-09] MEDS: ceFAZolin 2 GM/DEXTROSE 100 ML IV SCH ×3 (05:55→21:39)
--- NOTE | 2018-05-09 08:35 | SOAPPROG ---
SOAP Progress Note Assessment/Plan: Assessment: POD #1 left elbow I/D. Overall doing well. Plan: 1. Maintain splint/sling to LUE. NWB to the extremity. Can maintain left wrist /hand ROM. No lifting. 2. DVT Prophylaxis: Sharlene, WISAM mccoy IS. 3. Pain control: oral analgesics per hospitalists. 4. Drain: maintain at this time. 5. Antibiotics: continue regimen per I/D. Appreciate their reccs. Will continue to monitor pathology of samples. 6. PT/OT: NWB to LUE, ROM of left wrist/hand ok. Maintain splint at this time. 7. Advised to watch for worsening pain, abnormal numbness/tingling, worsening change in ROM or strength, fever, chills, NVD, worsening change in heat/color of extremity and to seek immediate medical attention if seen. 8. Following D/C will F/u in our office in 7-10 days post-op for exam. Call our office with questions/concerns or to schedule at [phone]. Patient seen/discussed in conjunction with Dr. Day. 05/09/18 08:30 Subjective: Father in room. Able to respond appropriately to questions and commands. Has not yet passed flatus but is drinking water without difficulty. Denies numbness , tingling, fever, chills, NVD, worsening change in heat/color of extremity, worsening pain, worsening swelling. Has been compliant in splint, NWB, sling and ROM of left hand. Pain is well controlled and he is without complaint. Objective: Vital Signs Temp Pulse Resp BP Pulse Ox 36.4 C 52 L 16 93/46 L 93 05/09/18 07:39 05/09/18 07:39 05/09/18 07:39 05/09/18 07:39 05/09/18 07:39 Laboratory Results 05/08/18 12:20 05/08/18 05/09/18 05/10/18 05:59 05:59 05:59 Intake Total 2350 1775 Output Total 900 40 Balance 1450 1735 AO, NAD, non-labored breathing, no diaphoresis. Afebrile. MS: LUE in splint. All compartments are soft. No abnormal bleeding,oozing, discharge, change in heat/color of extremity is noted. 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 Negative passive stretch. DNVI with no focal deficits noted. Brisk cap refill b/l. SCDs on/pumping b/l with WISAM hose on b/l. Calves soft/supple and NTTP b/l with negative b/l Homans. Labs From Surgery: Pending. Blood cultures still ntd. Drain: in place with approx 20cc serosanguinous drainage noted. ICD10 Worksheet Patient Problems: Problems Problem Status Onset Cellulitis Acute Cellulitis and abscess of upper extremity Acute
--- NOTE | 2018-05-09 09:03 | HOSPPROG ---
Hospitalist Progress Note Assessment/Plan: 18-year-old male with acute left elbow cellulitis. First encounter, chart reviewed. *left elbow septic olecranon bursitis and infection lacerations -s/p I & D and debridement per Dr Day -Cefazolin and Clindamycin *Pain -supportive care -better since I & D *Sepsis -resolving *plan: will discuss w surgical team and ID about plan of dc, patient has MARTÍNEZ drain in place, his pain is much improved. Reviewed his care with his dad and with Dr Weeks Subjective: Myles is feeling better today, didn't get much sleep. Objective: Vital Signs Temp Pulse Resp BP Pulse Ox 36.4 C 52 L 16 93/46 L 93 05/09/18 07:39 05/09/18 07:39 05/09/18 07:39 05/09/18 07:39 05/09/18 07:39 Microbiology 05/08/18 17:39 Gram Stain - Final Elbow - Swab 05/08/18 17:39 Gram Stain - Final Elbow - Other Laboratory Results 05/08/18 12:20 05/08/18 05/09/18 05/10/18 05:59 05:59 05:59 Intake Total 2350 1775 Output Total 900 40 Balance 1450 1735 - Physical Exam Constitutional: no apparent distress, appears nourished, not in pain Eyes: PERRL Ears, Nose, Mouth, Throat: hearing normal Cardiovascular: regular rate and rhythym Respiratory: no respiratory distress Gastrointestinal: normoactive bowel sounds Skin: warm, other (good cms to left hand) Musculoskeletal: full muscle strength Neurologic: AAOx3, sensation intact bilaterally Psychiatric: interacting appropriately ICD10 Worksheet Patient Problems: Problems Problem Status Onset Cellulitis Acute Cellulitis and abscess of upper extremity Acute
[2018-05-09] MEDS: oxyCODONE IR 5 MG TAB PO PRN ×2 (10:13→21:45)
[2018-05-09] MEDS: traMADol 50 MG TAB PO PRN ×2 (13:00→19:10)
--- NOTE | 2018-05-09 22:17 | PCMIDPN ---
Assessment/Plan: Assessment: 18-year-old man with left olecranon bursitis with surrounding cellulitis and abscess. Generally improved since surgical debridement yesterday. He has defervesced and shows no ongoing evidence of sepsis physiology. 1. Left olecranon bursitis, improved, secondary to group a and group B strep 2. Status post I&D of left olecranon bursitis 05/08/18 3. Left upper extremity cellulitis, secondary to group a and group B strep Plan: 1. Continue cefazolin 2 g q.8 hours 2. Continue clindamycin but stop after doses today, stop date placed 3. Outpatient Infectious Diseases follow-up being arranged 4. Anticipate oral therapy at discharge Shawn Weeks MD Infectious Diseases 05/09/18 22:14 Subjective: No fever or chills in the past 24-hours. No diarrhea, nausea, or other GI symptoms. No rash. Ambulating without difficulty. Underwent surgical debridement of left olecranon bursitis with purulent material obtained. Pain adequately controlled. Objective: Vital Signs Temp Pulse Resp BP Pulse Ox 36.4 C 52 L 16 93/46 L 93 05/09/18 07:39 05/09/18 07:39 05/09/18 07:39 05/09/18 07:39 05/09/18 07:39 Microbiology 05/08/18 17:39 Gram Stain - Final Elbow - Other 05/08/18 17:39 Gram Stain - Final Elbow - Swab Laboratory Results 05/08/18 12:20 05/08/18 05/09/18 05/10/18 05:59 05:59 05:59 Intake Total 2350 1775 Output Total 900 40 Balance 1450 1735 ESR 24 MM/HR (0-15) H 05/08/18 12:20 C-Reactive Protein 160.1 mg/L (<10.0) H 05/08/18 12:20 Medications Generic Name Dose Route Start Last Admin Trade Name Freq PRN Reason Stop Dose Admin Cefazolin Sodium/Dextrose 100 mls @ 200 mls/hr 05/07/18 14:00 05/09/18 21:39 Ancef IV 06/06/18 13:59 100 mls Q8HRS MIKEL Protocol Clindamycin Phosphate/Dextrose 50 mls @ 100 mls/hr 05/08/18 20:00 05/09/18 20 :27 Cleocin 600 Mg (Premix) IV 06/07/18 19:59 50 mls Q8H [facility] Protocol Microbiology 05/08/18 17:39 Elbow - Swab Gram Stain - Final 05/08/18 17:39 Elbow - Other Gram Stain - Final 05/06/18 15:50 Arm - Swab Gram Stain - Final 05/08/18 17:39 Elbow - Swab Fungal Culture - Preliminary 05/08/18 17:39 Elbow - Swab Anaerobic Culture - Preliminary Streptococcus Pyogenes Grp A 05/08/18 17:39 Elbow - Other Fungal Culture - Preliminary 05/08/18 17:39 Elbow - Other Anaerobic Culture - Preliminary Streptococcus Pyogenes Grp A 05/06/18 15:50 Arm - Swab Wound Culture - Preliminary Streptococcus Pyogenes Grp A Strep Agalactiae Group B Laboratory Tests 05/06/18 05/06/18 05/07/18 16:00 16:00 04:47 WBC 18.52 H 14.91 H ESR Creatinine 0.9 C-Reactive Protein HIV (1&2) Ag & Ab Refer 05/07/18 05/08/18 05/08/18 13:26 12:20 12:20 WBC ESR 24 H Creatinine C-Reactive Protein 160.1 H HIV (1&2) Ag & Ab Refer NEGATIVE - Physical Exam General Appearance: no apparent distress, non-toxic EENT: No scleral icterus Respiratory: No accessory muscle use Neck: full range of motion, supple Skin: other (Left upper extremity in postsurgical dressing, not taken down today ) Neuro/Psych: alert, normal mood/affect, oriented x 3, No confused - Time Spent With Patient Time Spent with Patient: greater than 25 minutes (Consult regarding overall plan for antibiotics after surgical debridement) Time Spent with Patient: Greater than 25 minutes spent on this patients care, greater than 50% of time spent counseling, educating, and coordinating care regarding the above mentioned plan. ICD10 Worksheet Patient Problems: Problems Problem Status Onset Cellulitis Acute Cellulitis and abscess of upper extremity Acute
--- NOTE | 2018-05-09 22:29 | PDIAF ---
- Diagnosis Code Status: Full Code - Medication Management Discharge Medications: electronically signed and located in the Home Medication List. - Orders Additional Instructions: Orthopedic Plan (Dr. Day): 1. Maintain splint/sling to left upper extremity. No weight bearing to the extremity. Can maintain left wrist/hand range of motion. No lifting. 2. DVT Prophylaxis: Continue WISAM hose for first 2 weeks post-operatively and breathing instructions as shown in hospital. 3. Pain control: oral analgesics per hospitalists. 4. Antibiotics: Please continue antibiotics as prescribed by infectious disease until finished. 6. The patient is to continue to maintain his splint and is not to get it wet. Will need to follow-up in our office for suture removal. Please notify us if notice a change in heat/color of extremity or around wound sites. 7. The patient is to use ice as needed for pain control, as well as any pain medication prescribed at discharge as instructed. 8. The patient is to watch for signs of infection at her surgical site, including but not limited to: significant increases in pain or swelling, redness which extends beyond his dressing or significant increases in warmth or drainage, worsening swelling, cramping in his calves or ankles as well as constitutional symptoms such as fevers, chills, nausea or vomiting. He is to notify the office immediately if any of these occur. 9. The patient is to Follow up in clinic with Dr. Day in 7 days after the date of surgery, 05/15/2018, or sooner as needed for additional questions/ concerns which may arise. Please call our office at [phone] Day. - Follow Up Care Current Providers and Referrals: NONE *PRIMARY CARE P,. [Primary Care Provider] - As per Instructions Shawn Weeks MD [Medical Doctor] -
[2018-05-10] MEDS: CLINDAMYCIN 600 MG/DEXTROSE 50 ML IV SCH (04:12)
[2018-05-10] MEDS: ceFAZolin 2 GM/DEXTROSE 100 ML IV SCH ×3 (05:18→22:32)
[2018-05-10] MEDS: oxyCODONE IR 5 MG TAB PO PRN ×2 (05:22→12:22)
--- NOTE | 2018-05-10 11:23 | ASMTCMCOM ---
CM Note CM Note Notes: CM unable to chart yesterday due to downtime. Pts case discussed w/ Avis Osorio NP. Pt will most likely be switched to oral abx once medically stable. No therapies ordered at this time. Pt will most likely be independent. CM available for changes. Plan: Independent Date Signed: 05/10/2018 11:22 AM Electronically Signed By:MIGUEL Kumari
--- NOTE | 2018-05-10 11:37 | PCMIDPN ---
Assessment/Plan: # GAS and GBS L septic bursitis with associated severe cellulitis s/p debridement. Cx from OR only with GAS. Patient s/p Clinda although GAS was resistant. This is my first exam but seems significant clinical improvement with minimal erythema remaining today. CRP 51 from 160 --tentatively plan DC tomorrow if ok w surgeons. Plan PO abx at DC --reviewed plan of care with patient and his father. Patient examined with Avis Osorio NP --continue Ancef overnight --elevate arm as much as possible Meds Cefazolin 2gm IV q8h #4 (first day just 1gm) Microbiology 05/06/18 15:50 Arm - Swab : Streptococcus Pyogenes Grp A; Strep Agalactiae Group B 05/08/18 17:39 Elbow cx : Streptococcus Pyogenes Grp A 05/06/18 16:10 Blood Cx (2) NGTD Subjective: no specific c/o wants to leave hospital Dad at bedside patient remarks that much less swelling LUE Objective: Vital Signs Temp Pulse Resp BP Pulse Ox 36.6 C 45 L 15 105/59 L 95 05/10/18 08:00 05/10/18 08:00 05/10/18 08:00 05/10/18 08:00 05/10/18 08:00 Microbiology 05/08/18 17:39 Gram Stain - Final Elbow - Other 05/08/18 17:39 Gram Stain - Final Elbow - Swab Laboratory Results 05/10/18 04:42 05/09/18 05/10/18 05/11/18 05:59 05:59 05:59 Intake Total 1775 120 Output Total 40 Balance 1735 120 ESR 13 MM/HR (0-15) 05/10/18 04:42 C-Reactive Protein 51.7 mg/L (<10.0) H 05/10/18 04:42 - Physical Exam General Appearance: alert, no apparent distress Respiratory: No accessory muscle use Extremities: other (LUE : mild swelling, small hint of erythema remains lateral arm, elbow; MARTÍNEZ drain with serosang fluid, mild tenderness and warmth, careful movement of elbow shows no evidence joint; radial pulse intact, nl cap refill) Skin: normal color, warm/dry, No rash Neuro/Psych: alert, normal mood/affect, oriented x 3 - Time Spent With Patient Time Spent with Patient: greater than 35 minutes (care coordinated with hospitalist and nursing) Time Spent with Patient: Greater than 35 minutes spent on this patients care, greater than 50% of time spent counseling, educating, and coordinating care regarding the above mentioned plan. ICD10 Worksheet Patient Problems: Problems Problem Status Onset Cellulitis Acute Cellulitis and abscess of upper extremity Acute
--- NOTE | 2018-05-10 15:14 | SOAPPROG ---
SOAP Progress Note Assessment/Plan: Assessment: POD #2 left elbow I/D. Overall doing well. Cultures positive for Strep Pyo A. Plan: 1. Maintain splint/sling to LUE. NWB to the extremity. Can maintain left wrist /hand ROM. No lifting. 2. DVT Prophylaxis: SCDs, WISAM hose, IS. I have asked him to replace his WISAM hose at this time. 3. Pain control: oral analgesics per hospitalists. 4. Drain: maintain at this time, likely will pull tomorrow pending output. Once drain is D/C'd he can d/c use of splint. 5. Antibiotics: continue regimen per I/D. Appreciate their reccs. Will continue to monitor pathology of samples. 6. PT/OT: NWB to LUE, ROM of left wrist/hand ok. Maintain splint at this time. 7. Advised to watch for worsening pain, abnormal numbness/tingling, worsening change in ROM or strength, fever, chills, NVD, worsening change in heat/color of extremity and to seek immediate medical attention if seen. 8. Following D/C will F/u in our office in 7-10 days post-op for exam. Call our office with questions/concerns or to schedule at [phone]. 9. Dispo ok to D/C once cleared by I/D, hospitalists, CM; appreciate their reccs. Will not D/C him yet until we pull drain. Patient seen/discussed in conjunction with Dr. Day. 05/10/18 15:14 Subjective: Father in room. Patient is able to respond appropriately to questions and commands. Has passed flatus at this time. Denies numbness, tingling, fever, chills, NVD, worsening change in heat/color of extremity, worsening pain, worsening swelling. Has been compliant in splint, NWB, sling and ROM of left hand besides when wound was checked by I/D. Pain is well controlled and he is without complaint. Has not been compliant in WISAM hose and states he took them off this am. Objective: Vital Signs Temp Pulse Resp BP Pulse Ox 36.8 C 65 16 86/46 L 95 05/10/18 15:06 05/10/18 15:06 05/10/18 15:06 05/10/18 15:06 05/10/18 15:06 Microbiology 05/08/18 17:39 Gram Stain - Final Elbow - Swab 05/08/18 17:39 Gram Stain - Final Elbow - Other Laboratory Results 05/10/18 04:42 05/09/18 05/10/18 05/11/18 05:59 05:59 05:59 Intake Total 1775 120 Output Total 40 20 Balance 1735 120 -20 AO, NAD, non-labored breathing, no diaphoresis. Afebrile. MS: CHERYL was in splint but taken down prior to my arrival for wound check for I/ D. I additionally took down the dry dressing and see the wound is healing well with no abnormal bleeding/oozing/abnormal discharge seen; improved erythema around the wound site compared to prior and no e/e/c otherwise noted. All compartments are soft. No abnormal bleeding,oozing, discharge, change in heat/ color of extremity is noted. ROM: 3-90 in flexion/extension, 85 supination and 90 pronation. 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 Negative passive stretch. DNVI with no focal deficits noted. Brisk cap refill b/l. SCDs on/pumping b/l with WISAM hose on b/l. Calves soft/supple and NTTP b/l with negative b/l Homans. Labs From Surgery: Preliminary results show Strep Pyo A. Drain: in place with approx 50cc serosanguinous drainage noted. Will maintain at this time. - Pending Discharge Pending Discharge Within 48 Hours: Yes Pending Discharge Date: 05/12/18 Pending Discharge Time: 11:00 ICD10 Worksheet Patient Problems: Problems Problem Status Onset Cellulitis Acute Cellulitis and abscess of upper extremity Acute
[2018-05-10] MEDS: traMADol 50 MG TAB PO PRN (17:35)
--- NOTE | 2018-05-10 17:56 | HOSPPROG ---
Hospitalist Progress Note Assessment/Plan: 18-year-old male with acute left elbow cellulitis. *left elbow septic olecranon bursitis and infection lacerations/GAS -s/p I & D and debridement per Dr Day -Cefazolin (had been on clindamycin in addition) -evaluated his elbow w Dr Fabian -MARTÍNEZ drain in *Pain -supportive care -better since I & D *Sepsis -resolving *plan: Likely to dc either tomorrow or Monday, Dr Fabian will see Myles again tomorrow and determine if he can go on oral abx or needs another day of IV antibiotics. Myles will need a school excuse -he is a student at . Subjective: Myles is anxious to be dc, but ok w staying, elbow pain is improving. Objective: Vital Signs Temp Pulse Resp BP Pulse Ox 36.8 C 65 16 101/57 L 95 05/10/18 15:06 05/10/18 15:06 05/10/18 15:06 05/10/18 15:17 05/10/18 15:06 Microbiology 05/08/18 17:39 Gram Stain - Final Elbow - Other 05/08/18 17:39 Gram Stain - Final Elbow - Swab Laboratory Results 05/10/18 04:42 05/09/18 05/10/18 05/11/18 05:59 05:59 05:59 Intake Total 1775 120 Output Total 40 20 Balance 1735 120 -20 - Physical Exam Constitutional: no apparent distress, appears nourished Eyes: PERRL Ears, Nose, Mouth, Throat: hearing normal Skin: warm, other (left elbow with mild swelling, minimal redness at elbow site , MARTÍNEZ with bloody serous drainage.) Neurologic: AAOx3 Psychiatric: interacting appropriately ICD10 Worksheet Patient Problems: Problems Problem Status Onset Cellulitis Acute Cellulitis and abscess of upper extremity Acute
[2018-05-11] MEDS: traMADol 50 MG TAB PO PRN ×2 (00:04→07:05)
[2018-05-11] MEDS: ceFAZolin 2 GM/DEXTROSE 100 ML IV SCH (05:34)
[2018-05-11 08:33] VITALS: BP 92/54
--- NOTE | 2018-05-11 08:47 | SOAPPROG ---
SOAP Progress Note Assessment/Plan: Assessment: POD #3 left elbow I/D. Overall doing well. Cultures positive for Strep Pyo A. Drain output minimal. Plan: 1. Sling prn but shown AROM/PROM exercises. NWB to the extremity. Can maintain left wrist/hand ROM. No lifting. Maintain dry dressing. 2. DVT Prophylaxis: SCDs, WISAM hose, IS. I have asked him to replace his WISAM hose at this time. 3. Pain control: oral analgesics per hospitalists. 4. Drain: Pulled today. 5. Antibiotics: continue regimen per I/D. Appreciate their reccs. Will continue to monitor pathology of samples. 6. PT/OT: NWB to LUE, ROM of left wrist/hand ok. 7. Advised to watch for worsening pain, abnormal numbness/tingling, worsening change in ROM or strength, fever, chills, NVD, worsening change in heat/color of extremity and to seek immediate medical attention if seen. 8. Following D/C will F/u in our office in 7-10 days post-op for exam. Call our office with questions/concerns or to schedule at [phone]. 9. Dispo ok to D/C once cleared by I/D, hospitalists, CM; appreciate their reccs. Will not D/C him yet until we pull drain. Patient seen/discussed in conjunction with Dr. Day. 05/11/18 08:43 Subjective: Father in room. Patient is able to respond appropriately to questions and commands. Has passed flatus/BM at this time. Denies numbness, tingling, fever , chills, NVD, worsening change in heat/color of extremity, worsening pain, worsening swelling. Has been compliant in splint, NWB, sling and ROM of left hand besides when wound was checked by I/D. Pain is well controlled and he is without complaint. Has not been compliant in WISAM hose and states he has not been wearing them. Objective: Vital Signs Temp Pulse Resp BP Pulse Ox 36.5 C 49 L 18 92/54 L 96 05/11/18 08:00 05/11/18 08:00 05/11/18 08:00 05/11/18 08:00 05/11/18 08:00 Microbiology 05/08/18 17:39 Gram Stain - Final Elbow - Other 05/08/18 17:39 Gram Stain - Final Elbow - Swab Laboratory Results 05/10/18 04:42 05/10/18 05/11/18 05/12/18 05:59 05:59 05:59 Intake Total 120 1900 600 Output Total 25 Balance 120 1875 600 AO, NAD, non-labored breathing, no diaphoresis. Afebrile. MS: I have taken down splint/ dry dressing and see the wound is healing well with no abnormal bleeding/oozing/abnormal discharge seen; improved erythema around the wound site compared to prior and no e/e/c otherwise noted. All compartments are soft. No abnormal bleeding,oozing, discharge, change in heat/ color of extremity is noted. ROM: 3-90 in flexion/extension, 85 supination and 90 pronation. 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 Negative passive stretch. DNVI with no focal deficits noted. Brisk cap refill b/l. SCDs not on/pumping b/l with WISAM hose not on b/l. Calves soft/ supple and NTTP b/l with negative b/l Homans. Labs From Surgery: Preliminary results show Strep Pyo A. Drain: in place with approx 5cc serosanguinous drainage noted. Will personally D/C at this time. He tolerated drain removal well and placed in new dry dressing. - Pending Discharge Pending Discharge Within 24 Hours: Yes Pending Discharge Date: 05/12/18 Pending Discharge Time: 11:00 ICD10 Worksheet Patient Problems: Problems Problem Status Onset Cellulitis Acute Cellulitis and abscess of upper extremity Acute
--- NOTE | 2018-05-11 09:06 | PCMIDPN ---
Assessment/Plan: # GAS and GBS L septic bursitis with associated severe cellulitis s/p debridement. Cx from OR only with GAS. Minimal residual cellulitis remains. Drain was pulled this a.m. --plan DC --dc on 10 days keflex 750mg PO TID, I sent to [facility]. Using higher dose as patient is 18 years old and 90 kg. --warnings about side effects of antibiotics reviewed including risk of C diff: If greater than 3 loose stools, severe abdominal cramping or fever please call our office for evaluation of potential complication of all antibiotics, called C. difficile-associated diarrhea . Meds Cefazolin 2gm IV q8h #5 Microbiology 05/06/18 15:50 Arm - Swab : Streptococcus Pyogenes Grp A; Strep Agalactiae Group B 05/08/18 17:39 Elbow cx : Streptococcus Pyogenes Grp A 05/06/18 16:10 Blood Cx (2) NGTD Subjective: Patient feeling well and excited about discharge. no specific complaints Objective: Vital Signs Temp Pulse Resp BP Pulse Ox 36.5 C 49 L 18 92/54 L 96 05/11/18 08:00 05/11/18 08:00 05/11/18 08:00 05/11/18 08:00 05/11/18 08:00 Microbiology 05/08/18 17:39 Gram Stain - Final Elbow - Other 05/08/18 17:39 Gram Stain - Final Elbow - Swab Laboratory Results 05/10/18 04:42 05/10/18 05/11/18 05/12/18 05:59 05:59 05:59 Intake Total 120 1900 600 Output Total 25 Balance 120 1875 600 ESR 13 MM/HR (0-15) 05/10/18 04:42 C-Reactive Protein 51.7 mg/L (<10.0) H 05/10/18 04:42 - Physical Exam General Appearance: alert, no apparent distress Respiratory: No accessory muscle use Extremities: other (Left upper extremity with mild residual swelling, no erythema, mild warmth, incision over elbow healing well with no significant drainage. Radial pulse 2 +) Neuro/Psych: alert, normal mood/affect, oriented x 3 - Time Spent With Patient Time Spent with Patient: greater than 35 minutes (Care coordinated with Orthopedics, nursing and hospitalist) Time Spent with Patient: Greater than 35 minutes spent on this patients care, greater than 50% of time spent counseling, educating, and coordinating care regarding the above mentioned plan. ICD10 Worksheet Patient Problems: Problems Problem Status Onset Cellulitis Acute Cellulitis and abscess of upper extremity Acute
--- NOTE | 2018-05-11 12:44 | PDDCSUM ---
Discharge Summary Discharge Summary: 18-year-old male with acute left elbow bursitis/cellulitis. GAS and GBS L septic bursitis with associated severe cellulitis s/p debridement. Cx from OR only with GAS. Minimal residual cellulitis remains. Drain was pulled this a.m. s/p I& D per Dr. Day cleared for discharge cont Cefazolin x 10 days f/u with Ortho per instructions d/c diagnosis: # GAS and GBS L septic bursitis with associated severe cellulitis s/p debridement. Cx from OR only with GAS. Minimal residual cellulitis remains. Drain was pulled this a.m. --plan DC --dc on 10 days keflex 750mg PO TID, I sent to [facility]. Using higher dose as patient is 18 years old and 90 kg. --warnings about side effects of antibiotics reviewed including risk of C diff: If greater than 3 loose stools, severe abdominal cramping or fever please call our office for evaluation of potential complication of all antibiotics, called C. difficile-associated diarrhea . #Sepsis POD #3 left elbow I/D. Overall doing well. Cultures positive for Strep Pyo A. Drain output minimal: 1. Sling prn but shown AROM/PROM exercises. NWB to the extremity. Can maintain left wrist/hand ROM. No lifting. Maintain dry dressing. 2. DVT Prophylaxis: SCDs, WISAM hose 3. Pain control: oral analgesics 4. Drain: Pulled today. 5. Antibiotics: continue per above 6. PT/OT: NWB to LUE, ROM of left wrist/hand ok. 7. Advised to watch for worsening pain, abnormal numbness/tingling, worsening change in ROM or strength, fever, chills, NVD, worsening change in heat/color of extremity and to seek immediate medical attention if seen. 8. Following D/C will F/u with Ortho 7-10 days post-op for exam. Call office with questions/concerns or to schedule at [phone]. Microbiology 05/06/18 15:50 Arm - Swab : Streptococcus Pyogenes Grp A; Strep Agalactiae Group B 05/08/18 17:39 Elbow cx : Streptococcus Pyogenes Grp A 05/06/18 16:10 Blood Cx (2) NGTD Exam: NAD AAOX3 RRR CTA B MEDS: SEE MED REC TOTAL TIME SPENT ON D/C IS 35 MINS
== END 2018-05-11 11:17 | disposition home or self-care (01) | DRG 854 ==
LOC: INTOOBSV 16:14 → F3N 17:17 → OBSVTOIN 05-07 14:31
PROVIDERS: ADMIT Internal Medicine; ATTEND Family Medicine
PROC: 0H9CXZZ Drainage of Left Upper Arm Skin, External Approach (ICD-10-PCS; 2018-05-06)
PROC: 0JDF0ZZ Extraction of Left Upper Arm Subcutaneous Tissue and Fascia, Open Approach (ICD-10-PCS; principal; 2018-05-08 16:00)
PROC: 0JBF0ZZ Excision of Left Upper Arm Subcutaneous Tissue and Fascia, Open Approach (ICD-10-PCS; principal; 2018-05-08 16:00)
PROC: 0MT40ZZ Resection of Left Elbow Bursa and Ligament, Open Approach (ICD-10-PCS; principal; 2018-05-08 16:00)
DX: A41.9 Sepsis, unspecified organism (principal); M70.22 Olecranon bursitis, left elbow; L03.114 Cellulitis of left upper limb; M71.022 Abscess of bursa, left elbow; L02.414 Cutaneous abscess of left upper limb; B95.0 Streptococcus, group A, as the cause of diseases classified elsewhere; B95.1 Streptococcus, group B, as the cause of diseases classified elsewhere; T79.8XXA Other early complications of trauma, initial encounter
CPT/HCPCS: 96374; 97165-GO; 97535-GO; G0378; J0690; J1100; J1170; J1885; J2250; J2270; J2405; J2704; J3010